=== PATIENT | female | born 1955 | race Caucasian/White ===

== ENCOUNTER 2017-01-09 06:34 | Outpatient (CLI) | payer BC ==
[~2017-01-09] VITALS: Ht 172.7 cm; Wt 103.5 kg
[2017-01-09] VITALS (13 sets, daily range): BP systolic 103–171; BP diastolic 57–90; PULSE 62–74; RESP 13–34; TEMP 98.3; O2SAT 96–100; Ht 172.7 cm; Wt 103.5 kg
[~2017-01-09 06:34] MED LIST: ACET-62 PO; ASPI81TA83 PO; HYDR-4246 PO; LISI-625 PO; MELO-273 PO; METF-206 PO; METO-275 PO; NITR0.4T38 PO; NORMAL SALINE 1,000 ML IV SCH; SENN8.6C5 PO
--- NOTE | 2017-01-09 06:45 | NUR ---
ADMISSION PATIENT ADMITTED TO ROOM 118 AT THIS TIME. PATIENT AMBULATORY. PATIENT'S FRIEND AT BEDSIDE. PATIENT APPEARS IN NO DISTRESS. ROOM AIR. BED IN THE LOWEST POSITION, CALL LIGHT WITHIN REACH, SIDE RAILS UPX2, AND BED ALARM ON. WILL CONTINUE TO MONITOR.
[2017-01-09] MEDS ORDERED: HEPARIN 1,000units in NS 500ml BAG IV ONE (06:57)
[2017-01-09] MEDS ORDERED: LIDOCAINE 1% (10mg/ml) 30ml SDV ONE (06:57)
[2017-01-09] MEDS ORDERED: NITROGLYCERIN 50mg/10ml INJECTION IV ONE (07:02)
[2017-01-09] MEDS ORDERED: VERAPAMIL 5mg/2ml INJECTION IV ONE (07:02)
[2017-01-09] MEDS ORDERED: GLUC-176 (07:14)
[2017-01-09 07:24] LABS: BASOPHILS % (AUTO) 0.6 % (0-2); EOSINOPHILS # (AUTO) 0.3 T/MM3 (0-0.5); EOSINOPHILS % (AUTO) 4.4 % (0-4); HCT - HEMATOCRIT 36.6 % (36-46); HGB - HEMOGLOBIN 11.7 GM/DL (12-16); IMMATURE GRANULOCYTE # (AUTO) 0.01 T/MM3 (0.00-0.03); IMMATURE GRANULOCYTE % (AUTO) 0.2 % (0.0-0.5); LYMPHOCYTES # (AUTO) 2.6 T/MM3 (1-4.8); LYMPHOCYTES % (AUTO) 41.4 % (23-45); MEAN CORPUSCULAR HGB 29.5 UUG (26-34); MEAN CORPUSCULAR VOLUME 92.4 UM3 (80-100); MEAN PLATELET VOLUME 9.9 UM3 (9.4-12.4); MONOCYTES # (AUTO) 0.4 T/MM3 (0-0.8); MONOCYTES % (AUTO) 6.5 % (0-9.0); NEUTROPHILS % (AUTO) 46.9 % (33-66); RED BLOOD COUNT 3.96 M/MM3 (4.00-5.20); WBC - WHITE BLOOD COUNT 6.3 T/MM3 (4.5-11.0)
[2017-01-09] MEDS ORDERED: FENTANYL 100mcg/2ml INJECTION ONE (07:27)
[2017-01-09] MEDS ORDERED: MIDAZOLAM 2mg/2ml INJECTION ONE ×2 (07:28→08:26)
[2017-01-09] MEDS ORDERED: SALINE FLUSH 10ml SYRINGE ONE (07:28)
[2017-01-09 07:36] LABS: ANION GAP 11 MEQ/L (5-15); BUN/CREATININE RATIO 21 RATIO (6-26); CALCIUM 9.2 MG/DL (8.4-10.2); CHLORIDE 108 MEQ/L (98-107); CO2 - CARBON DIOXIDE 24 MEQ/L (22-30); CREATININE 0.8 MG/DL (0.7-1.2); GLOMERULAR FILTRATION RATE 73; GLUCOSE 160 MG/DL (65-110); POTASSIUM 4.5 MEQ/L (3.6-5); SODIUM 143 MEQ/L (134-144)
--- NOTE | 2017-01-09 08:25 | NUR ---
TO SOURCING COORDINATOR PATIENT TAKEN TO SOURCING COORDINATOR AT THIS TIME VIA CART AND SOURCING COORDINATOR STAFF. CHART, CONSENT, AND BP CUFF SENT WITH PATIENT. WILL CONTINUE TO MONITOR.
--- NOTE | 2017-01-09 09:30 | NUR ---
FROM EQUINE SCIENCE INSTRUCTOR PATIENT ARRIVED FROM EQUINE SCIENCE INSTRUCTOR AT THIS TIME VIA CART AND EQUINE SCIENCE INSTRUCTOR STAFF. PATIENT ABLE TO MOVE SELF OVER TO SURGICAL UNIT BED. A/OX3. LEFT WRIST CLEAN, DRY, INTACT. NO S/S OF EDEMA/HEMATOMA/BLEEDING. WILL CONTINUE TO MONITOR.
[2017-01-09] MEDS ORDERED: ONDANSETRON 4mg/2ml INJECTION IV PRN (10:00)
[2017-01-09] MEDS ORDERED: MAG-AL + SIM LIQUID 30 ML UDC PO PRN (10:00)
[2017-01-09] MEDS ORDERED: ACETAMINOPHEN 500 MG TABLET PO PRN (10:00)
[2017-01-09] MEDS ORDERED: ACETAMINOPHEN 325 MG TABLET PO PRN (10:00)
[2017-01-09] MEDS ORDERED: BISACODYL 10 MG SUPPOSITORY RECTALLY PRN (10:00)
[2017-01-09] MEDS ORDERED: BISACODYL 5 MG E.C. TABLET PO PRN (10:00)
[2017-01-09] MEDS ORDERED: MILK OF MAGNESIA 30 ML SUSP PO PRN (10:00)
[2017-01-09] MEDS ORDERED: NITROGLYCERIN 0.4 MG SUBLINGUAL TABLET SL PRN ×2 (10:00)
[2017-01-09] MEDS ORDERED: SENNOSIDES 8.6 MG TABLET PO PRN (10:00)
[2017-01-09] MEDS ORDERED: LORAZEPAM 0.5 MG TABLET PO PRN (10:00)
[2017-01-09] MEDS ORDERED: METOCLOPRAMIDE 10mg/2ml INJECTION IV PRN (10:00)
[2017-01-09] MEDS ORDERED: HYDROCODONE/APAP 5 mg/325 mg TABLET PO PRN (10:00)
[2017-01-09] MEDS ORDERED: MORPHINE SULFATE 4 MG SYRINGE IV PRN ×2 (10:00)
[2017-01-09] MEDS ORDERED: ATROPINE 1 MG/ML VIAL IV PRN (10:00)
[2017-01-09] MEDS ORDERED: LORAZEPAM 2 MG/ML INJECTION IV PRN (10:00)
[2017-01-09] MEDS ORDERED: CLOP75TA PO (10:13)
--- NOTE | 2017-01-09 11:22 | NUR ---
LAUREN AGUILAR VISITED PT. CM EXPLAINED ROLE AND PROVIDED CONTACT INFORMATION. PT PLANS TO RETURN HOME POST STAY AT [facility]. PT DENIES NEEDS. PT IS AWARE TO CONTACT CM IF NEEDS ARISE.
--- NOTE | 2017-01-09 13:00 | NUR ---
LAUREN PT DECIDED THAT SHE WOULD LIKE TO USE [facility] FOR PRIVATE PAY HANDS OFF SERVICES. LAUREN SPOKE WITH VERONICA FROM [facility] REGARDING RATES. VERONICA WILL CALL PT AND SET UP SERVICE TIMES. VERONICA IS AWARE THAT PT WILL D/C HOME TODAY.
[2017-01-09] MEDS ORDERED: CLOPIDOGREL 75 MG TABLET PO SCH (14:00)
--- NOTE | 2017-01-09 14:10 | NUR ---
DISMISSAL PATIENT DISMISSED TO HOME FOR SELF-CARE TO THE MAIN HOSPITAL ENTRANCE VIA WHEELCHAIR. PATIENT'S FRIEND WAS SOLAR SITE ASSESSMENT SPECIALIST HOME. STABLE AND ON ROOM AIR AT TIME OF DISMISSAL. LEFT WRIST COVERED WITH GAUZE/TEGADERM DRESSING. SPLINT APPLIED TO LEFT WRIST. PERSONAL BELONGINGS RETURNED PRIOR TO D/C. IV CATHETER REMOVED BY THIS RN AND IV CATHETER TIP INTACT. D/C INSTRUCTIONS REVIEWED PRIOR TO D/C. TOPICS DISCUSSED INCLUDED: NEW MEDICATIONS, S/S TO REPORT, FOLLOW UP APPOINTMENTS, AND INCISION CARE.
[2017-01-09] MEDS ORDERED: METOPROLOL XL 25 MG TABLET PO SCH (21:00)
[2017-01-09] MEDS ORDERED: LISINOPRIL 5 MG TABLET PO SCH (22:00)
[2017-01-10] MEDS ORDERED: ASPIRIN *EC* 81mg TABLET PO SCH (09:00)
--- NOTE | 2017-01-10 15:55 | NUR ---
CM CM LVM
--- NOTE | 2017-01-11 18:01 | CVPROF ---
DATE OF SERVICE 01/09/2017 PROCEDURE 1. Transradial left heart catheterization. 2. LV gram. 3. Coronary angiograms. 4. Saphenous vein graft ejection. 5. ZHU arteriogram. 6. Left subclavian arteriogram. INDICATIONS Patient is a 62-year-old female who is diabetic. She presented with two types of chest pain. One is heartburn. The other one is angina pectoris. She had an abnormal stress nuclear scan with reversible ischemia in the inferior lateral wall. She had a CABG x2 vessels in or about 2013. She understood the indications, alternatives, risks, and benefits of heart catheterization. She agreed to proceed. DESCRIPTION OF PROCEDURE Patient was brought to the cardiac cath laboratory. She received IV sedation of Versed and fentanyl. The left wrist was prepped and draped in the usual sterile fashion. After using 1% lidocaine by local infiltration, I accessed the left radial artery without difficulty. Using modified Seldinger percutaneous technique, a 6-Australian Buda-Jeannine sheath was introduced and placed. Sidearm was flushed. I aspirated the usual. Intraatrial direct combo was given per protocol. I went ahead and proceeded with a ZHU catheter to perform ZHU arteriogram, subclavian arteriogram, and right coronary arteriogram. I used a Ino-Yazmin catheter to perform left coronary arteriogram and saphenous vein graft ejection. FINDINGS HEMODYNAMICS: LVEDP was unremarkable without any pressure gradient across the aortic valve present, see full printout. LV GRAM: LV gram shows normal wall motion, normal systolic function, normal ejection fraction. CORONARY ANGIOGRAM Left main coronary artery is large, short, and patent. LAD is a large vessel. It has a proximal stent that exhibits moderate, diffuse restenosis at about 60% to 70%. This culminates into an 80% to 90% stenosis in the mid segment. It gives origin to a large diagonal branch that is free from any occlusive disease. There is competitive flow in the LAD present. Left circumflex artery is a nondominant normal caliber vessel. It gives origin to a large obtuse marginal branch. A small PL branch and exhibits only mild plaquing at about 20% to 30%. Right coronary artery is a large and dominant vessel. It exhibits severe stenosis across the mid segment with two areas of 98% stenosis. Acute marginal branch also exhibits about 70% to 80% stenosis. This vessel measures about 1.67 mm in caliber. Distal RCA gives origin to a medium caliber RPDA that has mild proximal plaquing. A larger caliber RPDA about 2.7 to 3 mm in caliber with severe, relatively focal stenosis of 80%, but then continues as a longer segment of [id number] narrowing. Stenosis is in the proximal portion. SVG to RCA is widely patent. ZHU to LAD and small diagonal branch is widely patent with a good runoff vessel. It is attached to the mid LAD. Left subclavian arteriogram does not show any significant stenosis. IMPRESSION 1. Two-vessel coronary artery disease as manifested by a severe occlusion of the mid LAD and mid RCA. In addition, there is an 80% stenosis in RPL branch, [id number] in caliber distal to the insertion of the saphenous vein graft. 2. Patent ZHU to LAD and saphenous vein graft to distal RCA. 3. Normal LV systolic function. PLAN Patient has stable symptoms. She will be loaded with Plavix, hydrated to wash off her contrast, and bring her back for percutaneous coronary intervention likely through the groin next week with Dr. Saeed Padilla, that is to the PL branch. JEFF
[2017-01-12] MEDS ORDERED: METFORMIN 1,000 MG TABLET PO SCH (08:00)
[2017-01-12] MEDS ORDERED: MELOXICAM 7.5 MG TABLET PO SCH (22:00)
--- NOTE | 2017-01-14 16:42 | NUR ---
CM CM LEFT VM
--- NOTE | 2017-01-15 14:45 | NUR ---
CM CM LVM
== END 2017-01-09 14:10 | disposition home or self-care (01) ==
LOC: CATH 06:34 → SRG 06:39 → CATH 14:10
PROVIDERS: ATTEND Internal Medicine Cardiovascular Disease
DX: I25.110 Atherosclerotic heart disease of native coronary artery with unstable angina pectoris (principal); T82.855A Stenosis of coronary artery stent, initial encounter; R94.39 Abnormal result of other cardiovascular function study; K21.9 Gastro-esophageal reflux disease without esophagitis; Z95.1 Presence of aortocoronary bypass graft; F41.9 Anxiety disorder, unspecified; E11.9 Type 2 diabetes mellitus without complications; I10 Essential (primary) hypertension; E78.5 Hyperlipidemia, unspecified; Z79.899 Other long term (current) drug therapy
CPT/HCPCS: 36415; 80048; 85025; 93005; 93459; C1887; C1893; J1644; J2250; J3010; J3490; J7030; Q9967; 93458

== ENCOUNTER 2017-01-16 05:04 | Outpatient (CLI) | payer BC ==
[~2017-01-16] VITALS: Ht 172.7 cm; Wt 101.6 kg
[2017-01-16] VITALS (27 sets, daily range): BP systolic 110–173; BP diastolic 54–74; PULSE 66–90; RESP 12–37; TEMP 97.6–98.1; O2SAT 94–99; Ht 172.7 cm; Wt 101.6 kg
[~2017-01-16 05:04] MED LIST changes: +CLOP75TA PO; +GLUC-176; -HYDR-4246 PO
--- NOTE | 2017-01-16 05:13 | NUR ---
ADMIT TO ROOM 122 FROM HOME, AMBULATORY TO ROOM. ALERT AND ORIENTED. ARRIVES WITH NEXT OF KIN, HER LIBRARY CIRCULATION ASSISTANT'S .
[2017-01-16] MEDS ORDERED: HEPARIN 1,000units in NS 500ml BAG IV ONE (06:08)
[2017-01-16] MEDS ORDERED: LIDOCAINE 1% (10mg/ml) 30ml SDV ONE (06:08)
[2017-01-16] MEDS ORDERED: IOHEXOL 350mg/ml 200ml BOTTLE ONE (06:08)
[2017-01-16] MEDS ORDERED: FENTANYL 100mcg/2ml INJECTION ONE (06:47)
[2017-01-16] MEDS ORDERED: MIDAZOLAM 2mg/2ml INJECTION ONE (06:47)
[2017-01-16] MEDS ORDERED: SALINE FLUSH 10ml SYRINGE ONE (06:47)
--- NOTE | 2017-01-16 06:50 | NUR ---
TO SUPERVISOR FURNACE ROOM BY CART WITH SUPERVISOR FURNACE ROOM STAFF.
[2017-01-16] MEDS ORDERED: CLOPIDOGREL 75 MG TABLET ONE (07:55)
--- NOTE | 2017-01-16 08:15 | NUR ---
SOLAR ELECTRIC PRACTITIONER Patient returned to Rm. 122 post heart cath. Awake and alert. Groin site intact.
--- NOTE | 2017-01-16 09:10 | NUR ---
ELIM Voided per bedpan. Awake and alert and denies discomfort.
--- NOTE | 2017-01-16 09:17 | CVPROF ---
DATE 01/16/[address] Jovanni Padilla PROCEDURE PTCA and stent placement into posterolateral branch of the distal right coronary artery via the saphenous vein graft to the right coronary artery. MEDICATION GIVEN DURING THE PROCEDURE Versed 2 mg intravenously, fentanyl 60 mcg intravenously, heparin 7000 units intravenously and Plavix 300 mg orally. COMPLICATIONS None. METHOD The patient was brought to the cardiac catheterization laboratory. Right groin was prepped and draped in the usual sterile technique. 1% Xylocaine was used for local anesthesia. A 6 Sudanese _sheath?_ was inserted in right femoral artery. A 6 Sudanese right bypass graft guide was inserted in the takeoff of the saphenous vein graft to the right coronary artery. Runthrough wire was advanced to the distal vessel. A 2.0 x 15 mm balloon was used for predilatation. Compliant balloon was used for predilatation. Subsequently, a 2.5 x 18 mm drug-eluting stent (Resolute) was deployed up to 12 atmospheres (2.7 mm dilatation was obtained). ? performed in right femoral artery and Mynx closure was applied and it was closed successfully. RESULTS 1. Angiographic Results: The posterolateral branch of the distal right coronary artery had at least 80% stenosis predilatation. It was 0% post-dilatation with TAMIE-3 flow before and after the procedure. The lesion length was approximately 12-13 mm. SUMMARY Successful PTCA and drug-eluting stent placement of the posterolateral branch of the distal right coronary artery via saphenous vein graft to the right coronary artery utilizing drug-eluting stent as noted above with excellent angiographic results. [facility]
[2017-01-16] MEDS ORDERED: CLOP75TA PO (11:01)
[2017-01-16] MEDS ORDERED: CLOP75TA33 PO (11:04)
--- NOTE | 2017-01-16 12:00 | NUR ---
STATUS Patient has voided x3 this shift. Continues to deny discomfort. Has met discharge criteria. Making arrangements for a friend to pick her up this afternoon.
--- NOTE | 2017-01-16 13:35 | NUR ---
LAUREN THIS WORKER MET WITH PT ON THIS DATE. THIS WORKER INTRODUCED SELF AND ROLE OF CASE MANAGEMENT. PT REPORTED THAT SHE HAD A GOOD SUPPORT OF "[employer]" MEM[employer]ERS. PT REPORTED THAT SHE HAS HER [employer] PEOPLE TO HELP WITH OBTAINING MEDICATIONS, GROCERIES, SOME MEALS AND TRANSPORTATION. PT INQUIRED REGARDING NEEDING HOUSEKEEPING SERVICES. THIS INFORMATION WAS PROVIDED TO PT AT THIS TIME. PT REQUESTED REFERRAL TO [facility] FOR A FEW DAYS PENDING HER RETURN TO WORK WHEN DOCTOR'S RELEASED HER. PT DENIED ANY OTHER NEEDS AT THIS TIME. PT WAS GIVEN THIS WORKER CONTACT INFORMATION AND ENCOURAGED PT TO CONTACT THIS WORKER WITH ANY NEEDS EVEN AFTER DISCHARGE.
--- NOTE | 2017-01-16 14:30 | NUR ---
Discharge instructions Discharge instructions reviewed with patient and hard copies given. Activity guidelines, medications, diet, s/sx to report, puncture site care and heart cath dismissal instructions reviewed and pt verbalized understanding. Pt denies any needs at this time. Denies SOA/difficulty breathing, Chest Pain, N/V. Will continue to monitor until dismissal. Addendum: 01/16/17 at 1604 by SALOMÓN GUERRA RN No bleeding/hematoma noted to right groin site. Dressing CDI
--- NOTE | 2017-01-16 14:48 | NUR ---
Chest Pain NT called this RN reporting pt was having CP. RN entered room and pt complained of sharp, throbbing CP under left breast. IV just removed. This RN assessed pt, lungs clear but diminished, heart auscultated and RN noted irregular heart beat. STAT EKG called immediately upon pt stated having CP. Vitals were taken, BP 173/[address] Padilla notified of pt condition. Given order for Nitro 0.4 mg SL q5 min x3 PRN for chest pain and to call with EKG results. No other orders given. By the end of phone call with physician, pt denies further CP but states wanting to have some Aspirin or Nitro. Will continue to monitor.
[2017-01-16] MEDS ORDERED: NITROGLYCERIN 0.4 MG SUBLINGUAL TABLET SL PRN (15:00)
--- NOTE | 2017-01-16 15:05 | NUR ---
EKG/Orders Dr. Padilla notified of EKG of NSR with Arrhythmia and Dr. Padilla said he was on his way. This RN told Dr. Padilla that blood was drawn with IV start and asked if he wanted a Troponin. Dr. Padilla denied need for a Troponin level stating "it won't do anything." Not other orders given at this time.
--- NOTE | 2017-01-16 15:10 | NUR ---
Physician In room angela Padilla in room with pt at this time. Pt denies CP at this time but explained situation. Nitro previously received. Dr. Padilla says to walk pt, monitor for an hour and if there are no concerns or continued CP, she can be dismissed. Dr. Padilla denies need for phone call prior to dismissal - only to call if there are changes and pt needs to stay.
--- NOTE | 2017-01-16 15:15 | NUR ---
Nitro Nitro given to pt 1505. Pt denies CP, has some dizziness, but wanted to take Nitro. BP 131/68 prior to nitro, BP 119/63 HR 90 5 minutes after Nitro.
--- NOTE | 2017-01-16 16:10 | NUR ---
Ambulation Pt ambulated in hallways at this time supervised by this RN. Pt denies SOA/difficulty breathing, CP, N/V. Pt states having some dizziness, but that goes away the longer she is up and moving. Pt ambulated 300 ft. Will continue to monitor.
--- NOTE | 2017-01-16 16:30 | NUR ---
Discharge Pt discharged home. Discharge instructions reviewed and pt verbalized understanding. Pt wheeled to front entrance with nursing staff. Pt denies CP, SOA/difficulty breathing, N/V. right groin asymptomatic, no bleeding/hematoma noted.
== END 2017-01-16 16:30 | disposition home or self-care (01) ==
LOC: CATH 05:04 → SRG 05:05 → CATH 16:30
PROVIDERS: ATTEND Internal Medicine Cardiovascular Disease
DX: I25.110 Atherosclerotic heart disease of native coronary artery with unstable angina pectoris (principal); Z95.1 Presence of aortocoronary bypass graft; K21.9 Gastro-esophageal reflux disease without esophagitis; R94.39 Abnormal result of other cardiovascular function study; F41.9 Anxiety disorder, unspecified; E11.9 Type 2 diabetes mellitus without complications; I10 Essential (primary) hypertension; E78.5 Hyperlipidemia, unspecified; Z79.82 Long term (current) use of aspirin; Z79.899 Other long term (current) drug therapy
CPT/HCPCS: 82948; C1725; C1760; C1769; C1874; C1887; C1893; C9604; J1644; J2250; J3010; J7030; Q9967; 93005